=== PATIENT | female | born 1965 | race Caucasian/White ===

== ENCOUNTER → 2017-11-21 | Outpatient (CLI) | payer OTHER ==
[2017-11-22 08:38] LABS: Source UN
== END ==
LOC: LAB 15:00
PROVIDERS: Nurse Practitioner Family
DX: Z01.419 Encounter for gynecological examination (general) (routine) without abnormal findings (principal)
CPT/HCPCS: G0145

== ENCOUNTER → 2019-04-17 | Outpatient (CLI) | payer OTHER ==
[2019-04-23 09:08] LABS: HPV 16 Negative (Negative); HPV 18 Negative (Negative); HPV OTHER HR TYPES Positive (Negative)
== END ==
LOC: LAB 16:00 → LAB SHORT 16:00
PROVIDERS: Registered Nurse
DX: R87.619 Unspecified abnormal cytological findings in specimens from cervix uteri (principal)
CPT/HCPCS: 87624; 87625; 88175

== ENCOUNTER → 2020-03-04 | Outpatient (CLI) | payer OTHER ==
[2020-03-05 15:09] LABS: HPV 16 Negative (Negative); HPV 18 Negative (Negative); HPV OTHER HR TYPES Positive (Negative)
== END | disposition home or self-care (01) ==
LOC: LAB SHORT 13:33 → LAB 13:33
PROVIDERS: Nurse Practitioner Family
DX: R87.619 Unspecified abnormal cytological findings in specimens from cervix uteri (principal)
CPT/HCPCS: 87624; 87625; G0145

== ENCOUNTER → 2020-07-16 | Outpatient (CLI) | payer OTHER | END | disposition home or self-care (01) | LOC: LAB SHORT 07:48 → LAB 07:48 | DX: R87.619 Unspecified abnormal cytological findings in specimens from cervix uteri (principal); R23.4 Changes in skin texture | CPT/HCPCS: 88305 ==

== ENCOUNTER → 2021-09-20 | Outpatient (CLI) | payer OTHER ==
[2021-09-22 15:10] LABS: HPV 16 Negative (Negative); HPV 18 Negative (Negative); HPV OTHER HR TYPES Negative (Negative)
== END | disposition home or self-care (01) ==
LOC: LAB SHORT 12:00
PROVIDERS: Nurse Practitioner Family
DX: Z01.419 Encounter for gynecological examination (general) (routine) without abnormal findings (principal)

== ENCOUNTER 2024-05-28 11:18 | Day surgery (SDC) | payer OTHER ==
[~2024-05-28] VITALS: Ht 162.6 cm; Wt 67.8 kg
[~2024-05-28 11:18] MED LIST: ATEN25 PO; DULCOLAX400 MG/5 M; Lactated Ringer's 1,000 ML IV ONE
[2024-05-28] MEDS ORDERED: CeFAZolin Sodium 2,000 MG VIAL ONE (12:02)
[2024-05-28] MEDS ORDERED: NS 50 ML IV ONE (12:03)
[2024-05-28] MEDS ORDERED: Midazolam HCl 1MG / ML 2ML Vial ONE (12:27)
[2024-05-28] MEDS ORDERED: Ondansetron HCl 2 MG / ML 2ML Vial ONE (12:28)
[2024-05-28] MEDS ORDERED: Lactated Ringer's 1,000 ML IV ONE (12:28)
[2024-05-28] MEDS ORDERED: FentaNYL Citrate 50 MCG/ML 2 ML Injection ONE (12:38)
[2024-05-28] MEDS ORDERED: propofoL 20 ML IV ONE (12:38)
[2024-05-28] MEDS ORDERED: Ropivacaine 0.5% HCl/Pf 5 MG/ML 20ML VIAL INJ ONE ×2 (12:53→12:56)
[2024-05-28] MEDS ORDERED: Droperidol 5 mg/2 ml Vial ONE (14:06)
[2024-05-28 14:50] VITALS: BP 139/85
--- NOTE | 2024-05-28 14:52 | NUR ---
05/28/24 1452 MARCO CARRASCO LIGHTS DIMMED, COOL CLOTHES TO NECK AND HEAD. ALCOHOL PREP PAD GIVEN BY MONI HOBSON. 2 DOSES OF INAPSINE GIVEN. NAUSEA IS A BIT BETTER, JUST GAVE 2ND DOSE. SHE ADMITS THAT HER PAIN IS CURRENTLY 2/10. COFFEE WAS GIVEN, NOW SHE IS DRINKING CHICKEN BROTH AND EATING SALTINES. KARIS THE THERAPY DOG CAME IN TO VISIT WITH HER. VERY KIND PT.
== END 2024-05-28 15:30 | disposition home or self-care (01) ==
LOC: ORSCSDS 11:18
PROVIDERS: Surgery
PROC: 0HBT0ZZ Excision of Right Breast, Open Approach (ICD-10-PCS; principal; 2024-05-28 12:30)
DX: D05.11 Intraductal carcinoma in situ of right breast (principal); Z17.0 Estrogen receptor positive status [ER+]; I10 Essential (primary) hypertension; Z79.899 Other long term (current) drug therapy; Z87.891 Personal history of nicotine dependence
CPT/HCPCS: 88307; J0690; J1790; J2250; J2405; J2704; J2795; J3010; J7120